=== PATIENT | male | born 1960 | race Caucasian/White ===

== ENCOUNTER 2021-04-10 07:30 | Inpatient (IN) | payer MEDICAID, OTHER ==
[~2021-04-10] VITALS: Ht 180.3 cm; Wt 90.0 kg
[2021-04-10] MEDS ORDERED: ketorolac tromethamine 15mg/ml inj. IM ONE (08:15)
[2021-04-10] MEDS ORDERED: LIDOcaine 1% W/epiNEPHrine 1:200,000 10ml vial IJ ONE (08:20)
[2021-04-10] MEDS ORDERED: ketorolac trometh. 30mg/ml inj. IM ONE (08:25)
[2021-04-10 09:02] LABS: BASOPHILS # (AUTO) 0.1 X10'3 (0-0.2); BASOPHILS % (AUTO) 0.6 % (0-1); EOSINOPHILS # (AUTO) 0.3 X10'3 (0-0.9); EOSINOPHILS % (AUTO) 2.6 % (0-6); HEMOGLOBIN 12.3 g/dl (14.0-17.9); LYMPHOCYTES # (AUTO) 1.2 X10'3 (1.1-4.8); LYMPHOCYTES % (AUTO) 10.1 % (21-51); MEAN CORPUSCULAR HEMOGLOBIN 29.3 PG (27.0-31.0); MEAN CORPUSCULAR HGB CONC 34.1 g/dL (33.0-36.5); MONOCYTES % (AUTO) 8.8 % (2-12); NEUTROPHILS # (AUTO) 9.2 X10'3 (1.8-7.7); NEUTROPHILS % (AUTO) 77.9 % (42-75); PLATELET COUNT 330 X10'3 (140-440); RED BLOOD COUNT 4.18 X10'6 (4.70-6.10); RED CELL DISTRIBUTION WIDTH 14.8 % (11.5-14.5); WHITE BLOOD COUNT 11.8 X10'3 (4.5-11.0)
[2021-04-10 09:08] LABS: ALBUMIN 3.8 G/DL (3.4-5.0); ANION GAP 10 (8-16); BLOOD UREA NITROGEN 13 MG/DL (7-18); BUN/CREATININE RATIO 12.7 (5.4-32.0); C-REACTIVE PROTEIN 2.78 MG/DL (0.0-0.5); CALCIUM 8.8 MG/DL (8.5-10.1); CHLORIDE 103 MMOL/L (99-107); CREATININE 1.02 MG/DL (0.60-1.10); GLUCOSE 127 MG/DL (70-104); POTASSIUM 3.6 MMOL/L (3.5-5.1); SODIUM 138 MMOL/L (135-145); eGFR 75 ML/MIN
[2021-04-10] MEDS ORDERED: oxyCODONE/APAP 5-325mg tablet PO ONE (09:20)
[2021-04-10 10:32] LABS: APPEARANCE,SYNOVIAL FLUID BLOODY; COLOR,SYNOVIAL FLUID RED; SYN RBC 647500 /CU MM (0); SYN WBC 80000 /CU MM (0-200)
[2021-04-10 10:33] LABS: SYNOVIAL FLUID CRYSTALS QT NO CRYSTALS SEEN
[2021-04-10] MEDS ORDERED: CefTRIAXone/D5W-Rocephin 1gm 50 ML IV ONE (10:50)
[2021-04-10] MEDS ORDERED: morphine 4 MG/ML inj SYRINge IV ONE (10:50)
[2021-04-10] MEDS ORDERED: vancomycin/NS 1 GM ADD-VANTAGE 250 ML IV ONE (11:00)
[2021-04-10] MEDS ORDERED: magnesium hydroxide 30ml (MOM) UD suspension PO PRN (12:20)
[2021-04-10] MEDS ORDERED: ondansetron/PF 4mg/2ml inj IV PRN (12:20)
[2021-04-10] MEDS ORDERED: potassium Cl 40MEQ/1/2NS 520ml 520 ML IV PRN ×2 (12:20)
[2021-04-10] MEDS ORDERED: mag hydrox/Alum hydrox/simeth 30ml oral suspension PO PRN (12:20)
[2021-04-10] MEDS ORDERED: acetaminophen 325mg tablet PO PRN (12:20)
[2021-04-10] MEDS ORDERED: albuterol 2.5 MG/3 ML nebule NEB PRN (12:20)
[2021-04-10] MEDS ORDERED: ipratropium/albuterol 3ml nebule NEB PRN (12:20)
[2021-04-10] MEDS ORDERED: magnesium 4gm in 100ml NS 100 ML IV PRN (12:20)
[2021-04-10] MEDS ORDERED: magnesium 2GM in 50ml NS 50 ML IV PRN (12:20)
[2021-04-10] MEDS ORDERED: potassium Cl 20 mEq SR tablet PO PRN ×2 (12:20)
[2021-04-10 13:15] VITALS: BP 134/86
[2021-04-10] MEDS ORDERED: NO HOME MEDS (14:08)
[2021-04-10] MEDS: normal saline 1000ml 1,000 ML IV SCH (15:51)
[2021-04-10] MEDS: heparin, porcine 5000 units/ml vial SQ SCH (16:47)
[2021-04-10 18:00] VITALS: BP 129/79
--- NOTE | 2021-04-10 18:30 | NUR ---
Patient in room ORTH[facility] 4015. I have received report from Delia CAMILO and had the opportunity to ask questions and assume patient care.
[2021-04-10] MEDS: K and/or MAG REPLACEMENT MC SCH (20:00)
[2021-04-10] MEDS ORDERED: VANCOMYCIN 1,500MG inj. 1,500 MG in normal saline 500ml IV soln 500 ML IV SCH (20:00)
--- NOTE | 2021-04-10 21:23 | NUR ---
Problems reprioritized. Patient report given, questions answered & plan of care reviewed with Lilian CAMILO.
--- NOTE | 2021-04-10 21:35 | NUR ---
Patient in room [facility]TH[facility] 4015. I have received report from Isak and had the opportunity to ask questions and assume patient care.
[2021-04-10 22:00] VITALS: BP 132/72
[2021-04-11] VITALS (17 sets, daily range): BP systolic 88–137; BP diastolic 49–81
[2021-04-11] MEDS: vancomycin/NS 1 GM ADD-VANTAGE 250 ML IV SCH ×3 (00:15→23:35)
[2021-04-11] MEDS: normal saline 1000ml 1,000 ML IV SCH ×4 (00:16→22:28)
[2021-04-11] MEDS: heparin, porcine 5000 units/ml vial SQ SCH ×4 (00:16→23:36)
[2021-04-11] MEDS: HYDROcodone/acetaminophen 10/325mg tab PO PRN ×2 (03:39→08:40)
[2021-04-11 05:55] LABS: BASOPHILS # (AUTO) 0.1 X10'3 (0-0.2); BASOPHILS % (AUTO) 0.6 % (0-1); EOSINOPHILS # (AUTO) 0.3 X10'3 (0-0.9); EOSINOPHILS % (AUTO) 3.6 % (0-6); HEMATOCRIT 32.5 % (42.0-52.0); LYMPHOCYTES # (AUTO) 1.3 X10'3 (1.1-4.8); LYMPHOCYTES % (AUTO) 14.8 % (21-51); MEAN CORPUSCULAR HEMOGLOBIN 29.3 PG (27.0-31.0); MEAN CORPUSCULAR HGB CONC 33.8 g/dL (33.0-36.5); MEAN CORPUSCULAR VOLUME 86.7 FL (78-98); MEAN PLATELET VOLUME 7.1 FL (7.4-10.4); MONOCYTES % (AUTO) 11.7 % (2-12); NEUTROPHILS # (AUTO) 6.2 X10'3 (1.8-7.7); NEUTROPHILS % (AUTO) 69.3 % (42-75); PLATELET COUNT 295 X10'3 (140-440); RED BLOOD COUNT 3.75 X10'6 (4.70-6.10); RED CELL DISTRIBUTION WIDTH 14.6 % (11.5-14.5); WHITE BLOOD COUNT 8.9 X10'3 (4.5-11.0)
[2021-04-11 06:06] LABS: ALANINE AMINOTRANSFERASE 13 U/L (12-78); ALBUMIN 2.8 G/DL (3.4-5.0); ALBUMIN/GLOBULIN RATIO 0.8 (1.1-1.5); ALKALINE PHOSPHATASE 54 IU/L (46-116); ANION GAP 8 (8-16); ASPARTATE AMINO TRANSFERASE 14 U/L (10-37); BILIRUBIN,TOTAL 0.7 MG/DL (0.1-1.0); BLOOD UREA NITROGEN 9 MG/DL (7-18); BUN/CREATININE RATIO 11.5 (5.4-32.0); CALCIUM 7.8 MG/DL (8.5-10.1); CHLORIDE 104 MMOL/L (99-107); CREATININE 0.78 MG/DL (0.60-1.10); GLUCOSE 112 MG/DL (70-104); MAGNESIUM 1.8 MG/DL (1.5-2.4); POTASSIUM 3.6 MMOL/L (3.5-5.1); SODIUM 137 MMOL/L (135-145); TOTAL CARBON DIOXIDE 24.8 MMOL/L (24-32); TOTAL PROTEIN 6.1 G/DL (6.4-8.2); eGFR > 90 ML/MIN
--- NOTE | 2021-04-11 06:34 | NUR ---
Problems reprioritized. Patient report given, questions answered & plan of care reviewed with ADAN
[2021-04-11] MEDS: K and/or MAG REPLACEMENT MC SCH ×2 (08:00→20:00)
[2021-04-11] MEDS: CefTRIAXone/D5W-Rocephin 1gm 50 ML IV SCH (08:31)
[2021-04-11] MEDS ORDERED: BUPIVAcaine 0.5% inj/PF 30 ML ONE (15:37)
[2021-04-11] MEDS ORDERED: midazolam 1 mg/ML 2ml injection ONE (15:48)
[2021-04-11] MEDS ORDERED: fentaNYL/PF 50MCG/1 ML 2ML syringe ONE ×2 (15:48→16:28)
[2021-04-11] MEDS ORDERED: ondansetron/PF 4mg/2ml inj IV PRN (16:00)
[2021-04-11] MEDS ORDERED: ringers solution, lacted 1,000 ML IV SCH (16:00)
[2021-04-11] MEDS ORDERED: proCHLORperazine 10 MG/2 ml inj IV PRN (16:00)
[2021-04-11] MEDS ORDERED: morphine 4 MG/ML inj SYRINge IV PRN (16:00)
[2021-04-11] MEDS ORDERED: morphine 2 MG/ML inj. syringe IV PRN (16:00)
[2021-04-11] MEDS ORDERED: meperidine/PF 25mg/ml syringe IV PRN ×3 (16:00)
[2021-04-11] MEDS ORDERED: sevoflurane 250ml liquid IH ONE (16:07)
[2021-04-11] MEDS ORDERED: dexamethasone sod phosphate 4mg/ml inj. ONE (16:42)
[2021-04-11] MEDS ORDERED: ondansetron/PF 4mg/2ml inj ONE (16:42)
[2021-04-11] MEDS ORDERED: propofol inj 20 ML IV ONE (16:42)
[2021-04-11] MEDS ORDERED: LIDOcaine 2% (20mg/ml) 5ml vial ONE (16:42)
--- NOTE | 2021-04-11 16:42 | NUR ---
Received from OR via , accompanied by Anesthesiologist DR SCHAFER and report given by Anesthesiolgist. AWAKENS TO VOICE, VITALS STABLE. DRESSING DI. ANNABELLE PAIN. TOES WARM AND PINK.
--- NOTE | 2021-04-11 17:32 | NUR ---
Report called to receiving nurse. Transferred via [facility] . Special Issues communicated to receiving nurse.AWAKE AND ORIENTED. VITALS STABLE. DRESSING DI. ANNABELLE PAIN. TO ORTHO RM 4017G AT THIS TIME.
[2021-04-11] MEDS: lactobacillus rhamnosus 10,000 MMU CELLS/CAPSULE PO SCH (20:01)
[2021-04-11] MEDS ORDERED: VANCOMYCIN LEVEL IV ONE (23:30)
[2021-04-12 06:00] VITALS: BP 139/78
--- NOTE | 2021-04-12 06:09 | NUR ---
Problems reprioritized. Patient report given, questions answered & plan of care reviewed with TON Bates.
--- NOTE | 2021-04-12 06:25 | NUR ---
Patient in room ORTHO 4015. I have received report from kathie maldonado and had the opportunity to ask questions and assume patient care.
[2021-04-12 06:55] LABS: BASOPHILS % (AUTO) 0.2 % (0-1); EOSINOPHILS % (AUTO) 0.1 % (0-6); HEMATOCRIT 35.6 % (42.0-52.0); HEMOGLOBIN 12.2 g/dl (14.0-17.9); LYMPHOCYTES # (AUTO) 0.8 X10'3 (1.1-4.8); LYMPHOCYTES % (AUTO) 8.3 % (21-51); MEAN CORPUSCULAR HEMOGLOBIN 29.4 PG (27.0-31.0); MEAN CORPUSCULAR HGB CONC 34.2 g/dL (33.0-36.5); MEAN PLATELET VOLUME 7.6 FL (7.4-10.4); MONOCYTES # (AUTO) 0.5 X10'3 (0-0.9); MONOCYTES % (AUTO) 4.9 % (2-12); NEUTROPHILS # (AUTO) 8.5 X10'3 (1.8-7.7); NEUTROPHILS % (AUTO) 86.5 % (42-75); PLATELET COUNT 264 X10'3 (140-440); RED BLOOD COUNT 4.14 X10'6 (4.70-6.10); RED CELL DISTRIBUTION WIDTH 14.7 % (11.5-14.5); WHITE BLOOD COUNT 9.9 X10'3 (4.5-11.0)
[2021-04-12 07:00] LABS: ALANINE AMINOTRANSFERASE 20 U/L (12-78); ALBUMIN 2.5 G/DL (3.4-5.0); ALBUMIN/GLOBULIN RATIO 0.7 (1.1-1.5); ALKALINE PHOSPHATASE 58 IU/L (46-116); ANION GAP 10 (8-16); ASPARTATE AMINO TRANSFERASE 17 U/L (10-37); BILIRUBIN,TOTAL 0.3 MG/DL (0.1-1.0); BLOOD UREA NITROGEN 11 MG/DL (7-18); BUN/CREATININE RATIO 14.5 (5.4-32.0); CALCIUM 7.9 MG/DL (8.5-10.1); CHLORIDE 105 MMOL/L (99-107); CREATININE 0.76 MG/DL (0.60-1.10); GLUCOSE 141 MG/DL (70-104); MAGNESIUM 1.8 MG/DL (1.5-2.4); POTASSIUM 4.3 MMOL/L (3.5-5.1); SODIUM 138 MMOL/L (135-145); TOTAL CARBON DIOXIDE 23.3 MMOL/L (24-32); TOTAL PROTEIN 6.3 G/DL (6.4-8.2); eGFR > 90 ML/MIN
[2021-04-12] MEDS: K and/or MAG REPLACEMENT MC SCH ×2 (08:39→20:00)
[2021-04-12] MEDS: CefTRIAXone/D5W-Rocephin 1gm 50 ML IV SCH (08:47)
[2021-04-12] MEDS: lactobacillus rhamnosus 10,000 MMU CELLS/CAPSULE PO SCH ×2 (08:47→20:08)
[2021-04-12] MEDS: heparin, porcine 5000 units/ml vial SQ SCH ×3 (08:48→23:49)
[2021-04-12] MEDS: HYDROcodone/acetaminophen 10/325mg tab PO PRN ×2 (08:57→17:51)
[2021-04-12 10:00] VITALS: BP 112/68
[2021-04-12] MEDS: VANCOmycin 1250MG/NS 250ml Bag 250 ML IV SCH ×2 (12:00→23:49)
[2021-04-12 14:00] VITALS: BP 114/72
[2021-04-12] MEDS: normal saline 1000ml 1,000 ML IV SCH (14:20)
[2021-04-12 18:00] VITALS: BP 132/79
--- NOTE | 2021-04-12 18:21 | NUR ---
Problems reprioritized. Patient report given, questions answered & plan of care reviewed with kathie maldonado.
[2021-04-12 22:00] VITALS: BP 151/71
[2021-04-13] MEDS: normal saline 1000ml 1,000 ML IV SCH ×2 (00:28→10:53)
[2021-04-13 06:00] VITALS: BP 141/72
[2021-04-13] MEDS: HYDROcodone/acetaminophen 10/325mg tab PO PRN ×3 (06:29→19:43)
--- NOTE | 2021-04-13 06:32 | NUR ---
Problems reprioritized. Patient report given, questions answered & plan of care reviewed with TON Jensen.
--- NOTE | 2021-04-13 06:47 | NUR ---
Patient in room ORTHO 4015B. I have received report from TON CONN and had the opportunity to ask questions and assume patient care.
[2021-04-13] MEDS: CefTRIAXone/D5W-Rocephin 1gm 50 ML IV SCH (07:38)
[2021-04-13] MEDS: lactobacillus rhamnosus 10,000 MMU CELLS/CAPSULE PO SCH ×2 (07:39→21:01)
[2021-04-13] MEDS: heparin, porcine 5000 units/ml vial SQ SCH ×3 (07:41→23:49)
[2021-04-13] MEDS: K and/or MAG REPLACEMENT MC SCH ×2 (08:00→18:29)
[2021-04-13 08:14] LABS: BASOPHILS # (AUTO) 0.1 X10'3 (0-0.2); BASOPHILS % (AUTO) 0.9 % (0-1); EOSINOPHILS # (AUTO) 0.2 X10'3 (0-0.9); EOSINOPHILS % (AUTO) 2.1 % (0-6); HEMATOCRIT 34.2 % (42.0-52.0); HEMOGLOBIN 11.5 g/dl (14.0-17.9); LYMPHOCYTES # (AUTO) 1.9 X10'3 (1.1-4.8); LYMPHOCYTES % (AUTO) 20.8 % (21-51); MEAN CORPUSCULAR HEMOGLOBIN 29.3 PG (27.0-31.0); MEAN CORPUSCULAR HGB CONC 33.6 g/dL (33.0-36.5); MEAN CORPUSCULAR VOLUME 87.1 FL (78-98); MEAN PLATELET VOLUME 7.6 FL (7.4-10.4); MONOCYTES # (AUTO) 0.7 X10'3 (0-0.9); NEUTROPHILS # (AUTO) 6.2 X10'3 (1.8-7.7); NEUTROPHILS % (AUTO) 68.2 % (42-75); PLATELET COUNT 329 X10'3 (140-440); RED BLOOD COUNT 3.93 X10'6 (4.70-6.10); RED CELL DISTRIBUTION WIDTH 14.8 % (11.5-14.5); WHITE BLOOD COUNT 9.1 X10'3 (4.5-11.0)
[2021-04-13 08:49] LABS: ALANINE AMINOTRANSFERASE 23 U/L (12-78); ALBUMIN 2.5 G/DL (3.4-5.0); ALBUMIN/GLOBULIN RATIO 0.6 (1.1-1.5); ALKALINE PHOSPHATASE 54 IU/L (46-116); ANION GAP 8 (8-16); ASPARTATE AMINO TRANSFERASE 14 U/L (10-37); BILIRUBIN,TOTAL 0.3 MG/DL (0.1-1.0); BLOOD UREA NITROGEN 16 MG/DL (7-18); BUN/CREATININE RATIO 19.8 (5.4-32.0); CALCIUM 7.9 MG/DL (8.5-10.1); CHLORIDE 108 MMOL/L (99-107); CREATININE 0.81 MG/DL (0.60-1.10); GLUCOSE 100 MG/DL (70-104); MAGNESIUM 1.9 MG/DL (1.5-2.4); POTASSIUM 4.1 MMOL/L (3.5-5.1); SODIUM 141 MMOL/L (135-145); TOTAL CARBON DIOXIDE 25.1 MMOL/L (24-32); TOTAL PROTEIN 6.4 G/DL (6.4-8.2); eGFR > 90 ML/MIN
[2021-04-13 10:00] VITALS: BP 151/85
[2021-04-13] MEDS: VANCOmycin 1250MG/NS 250ml Bag 250 ML IV SCH ×2 (12:21→23:49)
--- NOTE | 2021-04-13 18:07 | NUR ---
Problems reprioritized. Patient report given, questions answered & plan of care reviewed with TON OCHOA.
--- NOTE | 2021-04-13 18:30 | NUR ---
Patient in room ORTH[facility] 4015. I have received report from MARGO and had the opportunity to ask questions and assume patient care.
[2021-04-13 19:00] VITALS: BP 136/78
[2021-04-13 22:00] VITALS: BP 141/84
[2021-04-13] MEDS ORDERED: VANCOMYCIN LEVEL IV ONE (23:30)
[2021-04-14] MEDS: HYDROcodone/acetaminophen 10/325mg tab PO PRN ×3 (03:49→16:14)
[2021-04-14 06:26] VITALS: BP 156/75
--- NOTE | 2021-04-14 06:31 | NUR ---
Patient in room ORTH[facility] 4015. I have received report from GABRIELA CAMILO and had the opportunity to ask questions and assume patient care.
--- NOTE | 2021-04-14 06:35 | NUR ---
Problems reprioritized. Patient report given, questions answered & plan of care reviewed with QUETA.
[2021-04-14] MEDS: CefTRIAXone/D5W-Rocephin 1gm 50 ML IV SCH (07:09)
[2021-04-14] MEDS: lactobacillus rhamnosus 10,000 MMU CELLS/CAPSULE PO SCH ×2 (07:09→19:14)
[2021-04-14] MEDS: heparin, porcine 5000 units/ml vial SQ SCH ×3 (07:11→23:24)
[2021-04-14 07:16] LABS: BASOPHILS # (AUTO) 0.1 X10'3 (0-0.2); BASOPHILS % (AUTO) 1.5 % (0-1); EOSINOPHILS # (AUTO) 0.4 X10'3 (0-0.9); EOSINOPHILS % (AUTO) 6.5 % (0-6); HEMATOCRIT 35.7 % (42.0-52.0); HEMOGLOBIN 12.1 g/dl (14.0-17.9); MEAN CORPUSCULAR HEMOGLOBIN 29.2 PG (27.0-31.0); MEAN CORPUSCULAR HGB CONC 33.8 g/dL (33.0-36.5); MEAN CORPUSCULAR VOLUME 86.4 FL (78-98); MEAN PLATELET VOLUME 7.1 FL (7.4-10.4); MONOCYTES # (AUTO) 0.7 X10'3 (0-0.9); MONOCYTES % (AUTO) 10.5 % (2-12); NEUTROPHILS # (AUTO) 3.5 X10'3 (1.8-7.7); NEUTROPHILS % (AUTO) 51.5 % (42-75); PLATELET COUNT 367 X10'3 (140-440); RED BLOOD COUNT 4.13 X10'6 (4.70-6.10); RED CELL DISTRIBUTION WIDTH 14.9 % (11.5-14.5); WHITE BLOOD COUNT 6.8 X10'3 (4.5-11.0)
[2021-04-14 07:25] LABS: ALANINE AMINOTRANSFERASE 23 U/L (12-78); ALBUMIN 2.5 G/DL (3.4-5.0); ALBUMIN/GLOBULIN RATIO 0.6 (1.1-1.5); ALKALINE PHOSPHATASE 53 IU/L (46-116); ANION GAP 8 (8-16); ASPARTATE AMINO TRANSFERASE 11 U/L (10-37); BILIRUBIN,TOTAL 0.2 MG/DL (0.1-1.0); BLOOD UREA NITROGEN 17 MG/DL (7-18); BUN/CREATININE RATIO 19.1 (5.4-32.0); CALCIUM 8.5 MG/DL (8.5-10.1); CHLORIDE 105 MMOL/L (99-107); CREATININE 0.89 MG/DL (0.60-1.10); GLUCOSE 93 MG/DL (70-104); MAGNESIUM 1.8 MG/DL (1.5-2.4); POTASSIUM 4.3 MMOL/L (3.5-5.1); SODIUM 142 MMOL/L (135-145); TOTAL PROTEIN 6.4 G/DL (6.4-8.2); eGFR 87 ML/MIN
[2021-04-14] MEDS: K and/or MAG REPLACEMENT MC SCH ×2 (08:00→19:14)
[2021-04-14 10:00] VITALS: BP 124/75
--- NOTE | 2021-04-14 11:38 | NUR ---
Initial: Pt admit DX L ankle septic arthritis and leukocytosis s/p L ankle I&D w/ washout this admit per EMR. PO 75-100% avg regular diet meeting needs; double proteins TIDWM added for satiety. Dietary notified. LB 04/13. Will continue to monitor. Rec: 1. continue regular diet 2. double eggs WB, double meats BIDLD for satiety/wound healing 3. routine bowel care 4. scaled wt this admit Addendum: 04/14/21 at [address] Amended: Links added.
[2021-04-14] MEDS: vancomycin/NS 1 GM ADD-VANTAGE 250 ML IV SCH (16:02)
--- NOTE | 2021-04-14 18:28 | NUR ---
Problems reprioritized. Patient report given, questions answered & plan of care reviewed with KRZYSZTOF CAMILO.
[2021-04-14 22:00] VITALS: BP 131/69
[2021-04-15] MEDS: HYDROcodone/acetaminophen 10/325mg tab PO PRN (01:08)
[2021-04-15] MEDS: vancomycin/NS 1 GM ADD-VANTAGE 250 ML IV SCH (02:58)
[2021-04-15 06:00] VITALS: BP 133/77
--- NOTE | 2021-04-15 06:30 | NUR ---
Problems reprioritized. Patient report given, questions answered & plan of care reviewed with TON Alicea.
[2021-04-15 06:42] LABS: BASOPHILS # (AUTO) 0.1 X10'3 (0-0.2); BASOPHILS % (AUTO) 1.2 % (0-1); EOSINOPHILS # (AUTO) 0.6 X10'3 (0-0.9); EOSINOPHILS % (AUTO) 7.8 % (0-6); HEMATOCRIT 38.5 % (42.0-52.0); LYMPHOCYTES # (AUTO) 2.1 X10'3 (1.1-4.8); LYMPHOCYTES % (AUTO) 26.6 % (21-51); MEAN CORPUSCULAR HEMOGLOBIN 29.3 PG (27.0-31.0); MEAN CORPUSCULAR HGB CONC 33.7 g/dL (33.0-36.5); MEAN CORPUSCULAR VOLUME 86.8 FL (78-98); MEAN PLATELET VOLUME 6.7 FL (7.4-10.4); MONOCYTES # (AUTO) 0.8 X10'3 (0-0.9); MONOCYTES % (AUTO) 10.2 % (2-12); NEUTROPHILS # (AUTO) 4.3 X10'3 (1.8-7.7); NEUTROPHILS % (AUTO) 54.2 % (42-75); PLATELET COUNT 429 X10'3 (140-440); RED BLOOD COUNT 4.44 X10'6 (4.70-6.10); RED CELL DISTRIBUTION WIDTH 14.7 % (11.5-14.5)
--- NOTE | 2021-04-15 06:42 | NUR ---
Patient in room ORTHO 4015. I have received report from Donna CAMILO and had the opportunity to ask questions and assume patient care.
[2021-04-15 06:53] LABS: ALANINE AMINOTRANSFERASE 31 U/L (12-78); ALBUMIN 2.8 G/DL (3.4-5.0); ALBUMIN/GLOBULIN RATIO 0.7 (1.1-1.5); ALKALINE PHOSPHATASE 62 IU/L (46-116); ANION GAP 5 (8-16); ASPARTATE AMINO TRANSFERASE 21 U/L (10-37); BILIRUBIN,TOTAL 0.3 MG/DL (0.1-1.0); BLOOD UREA NITROGEN 18 MG/DL (7-18); BUN/CREATININE RATIO 20.2 (5.4-32.0); CALCIUM 8.7 MG/DL (8.5-10.1); CHLORIDE 103 MMOL/L (99-107); CREATININE 0.89 MG/DL (0.60-1.10); GLUCOSE 105 MG/DL (70-104); MAGNESIUM 1.9 MG/DL (1.5-2.4); POTASSIUM 4.5 MMOL/L (3.5-5.1); SODIUM 140 MMOL/L (135-145); TOTAL CARBON DIOXIDE 31.6 MMOL/L (24-32); TOTAL PROTEIN 7.1 G/DL (6.4-8.2); eGFR 87 ML/MIN
[2021-04-15] MEDS: K and/or MAG REPLACEMENT MC SCH ×2 (08:00→20:00)
[2021-04-15] MEDS: heparin, porcine 5000 units/ml vial SQ SCH ×2 (08:00→16:00)
[2021-04-15] MEDS: CefTRIAXone/D5W-Rocephin 1gm 50 ML IV SCH (08:37)
[2021-04-15] MEDS: lactobacillus rhamnosus 10,000 MMU CELLS/CAPSULE PO SCH ×2 (08:39→20:09)
[2021-04-15 10:00] VITALS: BP 131/73
--- NOTE | 2021-04-15 11:00 | NUR ---
wound care provided per [facility] orders. Small amount of serous drainage noted to L medial dorsal foot. No drainage to L lateral dorsal foot. will continue to monitor.
[2021-04-15] MEDS: HYDROcodone/acetaminophen 5mg/325mg tablet PO PRN ×2 (11:03→20:12)
[2021-04-15] MEDS: VANCOmycin 1250MG/NS 250ml Bag 250 ML IV SCH (15:11)
--- NOTE | 2021-04-15 16:16 | NUR ---
PAGER ID: [phone] MESSAGE: re: Room 4015B - Maciej Sai LEWIS pt has refused 0800 and 1600 Heparin doses today. He doesn't feel he needs it since he's ambulating frequently. Thank you, Jodee [phone] Education given to pt. Will continue to monitor.
[2021-04-15 18:00] VITALS: BP 124/66
--- NOTE | 2021-04-15 18:42 | NUR ---
Problems reprioritized. Patient report given, questions answered & plan of care reviewed with Yuly CAMILO.
[2021-04-15 22:00] VITALS: BP 120/69
[2021-04-16] MEDS: VANCOmycin 1250MG/NS 250ml Bag 250 ML IV SCH ×3 (01:15→23:52)
[2021-04-16] MEDS ORDERED: VANCOMYCIN LEVEL IV ONE (02:30)
[2021-04-16 07:03] LABS: MAGNESIUM 2.2 MG/DL (1.5-2.4)
[2021-04-16] MEDS: K and/or MAG REPLACEMENT MC SCH ×2 (08:00→19:04)
[2021-04-16] MEDS: heparin, porcine 5000 units/ml vial SQ SCH ×4 (08:00→23:53)
[2021-04-16] MEDS: lactobacillus rhamnosus 10,000 MMU CELLS/CAPSULE PO SCH ×2 (08:34→19:27)
[2021-04-16] MEDS: HYDROcodone/acetaminophen 10/325mg tab PO PRN ×3 (08:39→20:07)
[2021-04-16 10:00] VITALS: BP 117/72
[2021-04-16 12:12] LABS: BASOPHILS # (AUTO) 0.1 X10'3 (0-0.2); BASOPHILS % (AUTO) 1.4 % (0-1); EOSINOPHILS # (AUTO) 0.6 X10'3 (0-0.9); EOSINOPHILS % (AUTO) 7.7 % (0-6); HEMOGLOBIN 13.9 g/dl (14.0-17.9); LYMPHOCYTES # (AUTO) 1.9 X10'3 (1.1-4.8); LYMPHOCYTES % (AUTO) 25.1 % (21-51); MEAN CORPUSCULAR HGB CONC 33.8 g/dL (33.0-36.5); MEAN PLATELET VOLUME 7.3 FL (7.4-10.4); MONOCYTES # (AUTO) 0.8 X10'3 (0-0.9); MONOCYTES % (AUTO) 10.2 % (2-12); NEUTROPHILS # (AUTO) 4.3 X10'3 (1.8-7.7); NEUTROPHILS % (AUTO) 55.6 % (42-75); PLATELET COUNT 411 X10'3 (140-440); RED BLOOD COUNT 4.77 X10'6 (4.70-6.10); RED CELL DISTRIBUTION WIDTH 14.7 % (11.5-14.5); WHITE BLOOD COUNT 7.7 X10'3 (4.5-11.0)
[2021-04-16 12:42] LABS: ALANINE AMINOTRANSFERASE 62 U/L (12-78); ALBUMIN 3.1 G/DL (3.4-5.0); ALBUMIN/GLOBULIN RATIO 0.7 (1.1-1.5); ALKALINE PHOSPHATASE 69 IU/L (46-116); ANION GAP 8 (8-16); ASPARTATE AMINO TRANSFERASE 47 U/L (10-37); BILIRUBIN,TOTAL 0.3 MG/DL (0.1-1.0); BLOOD UREA NITROGEN 23 MG/DL (7-18); BUN/CREATININE RATIO 26.1 (5.4-32.0); CHLORIDE 103 MMOL/L (99-107); CREATININE 0.88 MG/DL (0.60-1.10); GLUCOSE 104 MG/DL (70-104); POTASSIUM 4.6 MMOL/L (3.5-5.1); SODIUM 138 MMOL/L (135-145); TOTAL CARBON DIOXIDE 26.9 MMOL/L (24-32); TOTAL PROTEIN 7.3 G/DL (6.4-8.2); eGFR 89 ML/MIN
[2021-04-16 18:00] VITALS: BP 116/64
--- NOTE | 2021-04-16 18:30 | NUR ---
Patient in room ORTHO 4015. I have received report from TON Elizondo and had the opportunity to ask questions and assume patient care.
[2021-04-16 22:00] VITALS: BP 98/50
[2021-04-17] MEDS: HYDROcodone/acetaminophen 10/325mg tab PO PRN (05:43)
[2021-04-17 06:00] VITALS: BP 119/68
--- NOTE | 2021-04-17 06:14 | NUR ---
Problems reprioritized. Patient report given, questions answered & plan of care reviewed with TON Elizondo.
[2021-04-17 07:29] LABS: BASOPHILS # (AUTO) 0.1 X10'3 (0-0.2); BASOPHILS % (AUTO) 1.2 % (0-1); EOSINOPHILS # (AUTO) 0.6 X10'3 (0-0.9); EOSINOPHILS % (AUTO) 7.8 % (0-6); HEMATOCRIT 38.8 % (42.0-52.0); HEMOGLOBIN 13.1 g/dl (14.0-17.9); LYMPHOCYTES # (AUTO) 1.9 X10'3 (1.1-4.8); LYMPHOCYTES % (AUTO) 24.5 % (21-51); MEAN CORPUSCULAR HEMOGLOBIN 29.3 PG (27.0-31.0); MEAN CORPUSCULAR HGB CONC 33.7 g/dL (33.0-36.5); MEAN CORPUSCULAR VOLUME 87.1 FL (78-98); MEAN PLATELET VOLUME 6.8 FL (7.4-10.4); MONOCYTES # (AUTO) 0.9 X10'3 (0-0.9); MONOCYTES % (AUTO) 11.8 % (2-12); NEUTROPHILS # (AUTO) 4.3 X10'3 (1.8-7.7); NEUTROPHILS % (AUTO) 54.7 % (42-75); PLATELET COUNT 440 X10'3 (140-440); RED BLOOD COUNT 4.45 X10'6 (4.70-6.10); RED CELL DISTRIBUTION WIDTH 14.7 % (11.5-14.5); WHITE BLOOD COUNT 7.8 X10'3 (4.5-11.0)
[2021-04-17] MEDS: lactobacillus rhamnosus 10,000 MMU CELLS/CAPSULE PO SCH (07:33)
[2021-04-17] MEDS: heparin, porcine 5000 units/ml vial SQ SCH ×2 (08:00→16:00)
[2021-04-17] MEDS: K and/or MAG REPLACEMENT MC SCH (08:00)
[2021-04-17 08:02] LABS: ALANINE AMINOTRANSFERASE 62 U/L (12-78); ALBUMIN/GLOBULIN RATIO 0.7 (1.1-1.5); ALKALINE PHOSPHATASE 66 IU/L (46-116); ANION GAP 10 (8-16); ASPARTATE AMINO TRANSFERASE 33 U/L (10-37); BILIRUBIN,TOTAL 0.3 MG/DL (0.1-1.0); BLOOD UREA NITROGEN 31 MG/DL (7-18); CALCIUM 8.6 MG/DL (8.5-10.1); CHLORIDE 103 MMOL/L (99-107); CREATININE 0.97 MG/DL (0.60-1.10); GLUCOSE 100 MG/DL (70-104); MAGNESIUM 2.1 MG/DL (1.5-2.4); POTASSIUM 4.7 MMOL/L (3.5-5.1); SODIUM 139 MMOL/L (135-145); TOTAL CARBON DIOXIDE 26.3 MMOL/L (24-32); TOTAL PROTEIN 7.1 G/DL (6.4-8.2); eGFR 79 ML/MIN
[2021-04-17] MEDS: VANCOmycin 1250MG/NS 250ml Bag 250 ML IV SCH (12:48)
--- NOTE | 2021-04-17 14:51 | NUR ---
Report given to Nolvia CAMILO at [facility].
--- NOTE | 2021-04-17 17:13 | NUR ---
Transferred to [facility] by stretcher, by [facility] ambulance. Condition stable.
[2021-04-18] MEDS ORDERED: VANCOMYCIN LEVEL IV ONE (11:30)
== END 2021-04-17 17:30 | DRG 720 ==
LOC: ER 07:31 → ED HOLD 12:18 → ORTHO 4S 13:10
PROVIDERS: ADMIT Family Medicine; ATTEND Family Medicine
PROC: 0S9G3ZZ Drainage of Left Ankle Joint, Percutaneous Approach (ICD-10-PCS; 2021-04-10)
PROC: 0Y9L0ZZ Drainage of Left Ankle Region, Open Approach (ICD-10-PCS; principal; 2021-04-11 16:07)
DX: A41.9 Sepsis, unspecified organism (principal); M00.9 Pyogenic arthritis, unspecified; Z20.822 Contact with and (suspected) exposure to COVID-19; Z60.2 Problems related to living alone; M25.00 Hemarthrosis, unspecified joint; F17.210 Nicotine dependence, cigarettes, uncomplicated; I25.2 Old myocardial infarction; Z71.6 Tobacco abuse counseling
CPT/HCPCS: 36415; 73610; 80048; 80053; 80202; 82948; 83605; 83735; 85025; 85610; 85651; 86140; 87040; 87070; 87075; 87081; 87635; 89051; 89060; 94760; 96365; 96368; 96372; 97110; 97116; 97161; 97530; 99285; A4215; A4618; A6449; A7000; G0378; J0696; J1100; J1644; J1885; J2001; J2250; J2405; J2704; J3010; J3370; J7030